=== PATIENT | female | born 1935 | race Caucasian/White ===

== ENCOUNTER 2017-11-10 20:04 | Emergency (ER) | payer MEDICARE, OTHER ==
[2014-09-29 11:06] VITALS: BMI 27.0
[~2017-11-10 20:04] MED LIST changes: +CITA-139 PO; -CITA-145 PO
--- NOTE | 2017-11-10 20:31 | ER Report ---
History and Physical Time Seen By MD: 20:30 Hx. of Stated Complaint: seizure, aloc, 1mg ativan given my bedics, found on scene snoring, states it looks like she seized 3 times, gluc 195 HPI/ROS CHIEF COMPLAINT: Seizure HISTORY OF PRESENT ILLNESS: 81-year-old female with no past history of neurological disease presents after having 4 distinct tonic-clonic seizure events over the last 2 hours. Each event lasted about 1 minute, followed by confusion. The 4th event occurred in the ambulance, patient was given 2 mg of Ativan just after seizure resolution. Patient's states she hit the left side of her head during the 3rd seizure. Her states that she has had decreased sleep and oral intake over the last few days. He states patient did not have a fever or other symptoms today. Patient's reports that the patient, under direction of her internet sales representative, injects preparation of food to try to neutralize her allergies, she also injects a very dilute hydrocodone solution in her thigh in order to be able to take oral hydrocodone. Discussed code status with patient's and patient is full code. REVIEW OF SYSTEMS: Constitutional: No fever, no chills. Eyes: No discharge. ENT: No sore throat. Cardiovascular: No chest pain, no palpitations. Respiratory: No cough, no shortness of breath. Gastrointestinal: No abdominal pain, no vomiting. Genitourinary: No hematuria. Musculoskeletal: No back pain. Skin: No rashes. Neurological: No headache. Allergies: Coded Allergies: Penicillins (Verified Allergy, Severe, 11/10/17) Tetanus Vaccines and Toxoid (Verified Allergy, Severe, 11/10/17) bupivacaine (Verified Allergy, Severe, 11/10/17) carisoprodol (Verified Allergy, Severe, 11/10/17) cefdinir (Verified Allergy, Severe, 11/10/17) cimetidine (Verified Allergy, Severe, 11/10/17) cyclobenzaprine (Verified Allergy, Severe, 11/10/17) erythromycin base (Verified Allergy, Severe, 11/10/17) methadone (Verified Allergy, Severe, 11/10/17) metronidazole (Verified Allergy, Severe, 11/10/17) minocycline (Verified Allergy, Severe, 11/10/17) morphine (Verified Allergy, Severe, 11/10/17) oxycodone (Verified Allergy, Severe, 11/10/17) phenol (Verified Allergy, Severe, 11/10/17) phenylephrine (Verified Allergy, Severe, 11/10/17) prochlorperazine (Verified Allergy, Severe, 11/10/17) sucralfate (Verified Allergy, Severe, 11/10/17) tramadol (Verified Allergy, Severe, 11/10/17) trovafloxacin (Verified Allergy, Severe, 11/10/17) Shellfish (Verified Allergy, Intermediate, 11/10/17) mold extracts (Verified Allergy, Intermediate, 11/10/17) polyethylene glycol 3350 (Verified Allergy, Intermediate, 11/10/17) adhesive (Verified Allergy, Mild, UNKNOWN, 11/10/17) cephalexin (Verified Allergy, Mild, TINNITUS, 11/10/17) ciprofloxacin (Verified Allergy, Mild, UNKNOWN, 11/10/17) clindamycin (Verified Allergy, Mild, UNKNOWN, 11/10/17) diphenhydramine (Verified Allergy, Mild, UNKNOWN, 11/10/17) gabapentin (Verified Allergy, Mild, UNKNOWN, 11/10/17) hydrocortisone (Verified Allergy, Mild, UNKNOWN, 11/10/17) lidocaine (Verified Allergy, Mild, UNKNOWN, 11/10/17) lorazepam (Verified Allergy, Mild, UNKNOWN, 11/10/17) prednisolone (Verified Allergy, Mild, UNKNOWN, 11/10/17) Fish Containing Products (Unverified Allergy, Unknown, 11/10/17) dexamethasone (Verified Allergy, Unknown, UNKNOWN, 11/10/17) green pepper (Unverified Allergy, Unknown, 11/10/17) hydromorphone (Unverified Allergy, Unknown, 11/10/17) influenza virus vaccine, specific (Verified Allergy, Unknown, UNKNOWN, 11/10) meperidine (Unverified Allergy, Unknown, 11/10/17) mirtazapine (Unverified Allergy, Unknown, 11/10/17) peas (Unverified Allergy, Unknown, 11/10/17) rivaroxaban (Unverified Allergy, Unknown, 11/10/17) rofecoxib (Unverified Allergy, Unknown, 11/10/17) sintia (Unverified Allergy, Unknown, 11/10/17) Uncoded Allergies: ALFALFA SPROUTS (Allergy, Intermediate, 05/14/10) ANIMALS (Allergy, Intermediate, 05/14/10) BUFFALO (Allergy, Intermediate, 05/14/10) CILANTRO (Allergy, Intermediate, 05/14/10) COLORING AND DYES (Allergy, Intermediate, ANAPHYLAXIS, 03/13/15) DUST (Allergy, Intermediate, 05/14/10) HANKINS (Allergy, Intermediate, 05/14/10) GAME MEAT (Allergy, Intermediate, 05/14/10) LISSA TEA (Allergy, Intermediate, 05/14/10) HARP (Allergy, Intermediate, 05/14/10) LENTILS (Allergy, Intermediate, 05/14/10) MACADAMIA NUTS (Allergy, Intermediate, 05/14/10) MAPLE FLAVOR (Allergy, Intermediate, NOTHING DOCUMENTED, 01/16/12) MUSHROOMS (Allergy, Intermediate, 05/14/10) RABBIT MEAT (Allergy, Intermediate, 05/14/10) HORSE SERUM (Allergy, Mild, 05/14/10) fluvaccine (Allergy, Mild, UNKNOWN, 03/20/14) Home Meds Active Scripts Sulfamethoxazole/Trimet 800-160 Mg Tab (BACTRIM DS TABLET) 1 Each Tablet, 1 TAB PO Q12H for 7 Days, #14 TAB Prov:KERRI MULLER JR, MD 05/17/17 Sulfamethoxazole/Trimet 800-160 Mg Tab (BACTRIM DS TABLET) 1 Each Tablet, 1 TAB PO Q12H for 10 Days, #20 TAB Prov:KERRI MULLER JR, MD 05/09/17 Dicyclomine Hcl (BENTYL) 10 Mg Capsule, 20 MG PO QID for cramping, #40 CAPSULE 0 Refills Prov:RAISA CHANEY MD 11/13/16 Alprazolam 0.5 Mg Tab (ALPRAZOLAM 0.5 MG TAB) 0.5 Mg Tablet, 1 TAB PO TID Y for for anxiety, #90 TAB 3 Refills Prov:KERRI NDIAYE MD 01/14/15 Acetaminophen/Hydrocodone (HYDROCODON-ACETAMINOPHN 10-325) 1 Each Tab, 2 TAB PO QID, #240 TAB 0 Refills Prov:KERRI NDIAYE MD 01/13/15 Reported Medications Eszopiclone (LUNESTA) 3 Mg Tablet, 3 MG PO QHS 10/28/16 Thyroid,Pork (WESTHROID-P) 65 Mg Tablet, 1 TAB PO DAILY, TAB 48.75 MG 09/28/14 Epinephrine (EPINEPHRINE) 0.15 Mg/0.15 Ml Pen.injctr, 0.15 MG IM PRN Y for ALLERGY SYMPTOMS 09/28/14 Diphenoxylate Hcl/Atropine (DIPHENOXYLATE-ATROPINE TABLET) 1 Each Tablet, 1 TAB PO BID Y for DIARRHEA, TAB 09/28/14 Cholecalciferol (Vitamin D3) (VITAMIN D) 1,000 Unit Tablet, 1000 UNIT PO DAILY, TAB 09/28/14 Past Medical/Surgical History See nurse's note 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 B/P (MAP) 116/56 (76) 139/61 (87) O2 Flow Rate 2.0 11/10/17 11/10/17 11/10/17 11/10/17 21:04 21:19 21:30 21:34 Pulse 101 98 94 Resp 25 20 B/P (MAP) 143/69 (93) Pulse Ox 94 95 11/10/17 11/10/17 11/10/17 11/10/17 22:00 22:09 22:24 22:30 Pulse 94 87 Resp 23 43 B/P (MAP) 122/51 (74) 88/45 (59) Pulse Ox 94 94 11/10/17 11/10/17 11/10/17 11/10/17 22:39 22:54 22:56 23:00 Pulse 87 97 Resp 22 B/P (MAP) 104/44 (64) 105/53 (70) 104/57 (73) Pulse Ox 95 5/10/2511/10/17 11/10/17 11/10/17 23:04 23:08 23:09 23:12 Pulse 95 Resp 24 B/P (MAP) 90/59 (69) 96/62 (73) 115/62 (79) Pulse Ox 93 11/10/17 11/10/17 11/10/17 11/10/17 23:16 23:20 23:24 23:32 B/P (MAP) 104/62 (76) 103/53 (70) 96/47 (63) 99/49 (66) 11/10/17 11/10/17 11/10/17 11/10/17 23:36 23:40 23:44 23:52 Pulse 83 Resp 20 B/P (MAP) 98/48 (65) 94/49 (64) 91/44 (60) 118/53 (74) Pulse Ox 92 11/10/17 11/10/17 11/11/17 11/11/17 23:56 23:59 00:00 00:04 Pulse 81 Resp 17 B/P (MAP) 116/50 (72) 120/50 (73) 110/48 (68) Pulse Ox 94 11/11/17 11/11/17 11/11/17 11/11/17 00:08 00:12 00:14 00:16 Pulse 81 Resp 23 B/P (MAP) 108/48 (68) 104/51 (68) 102/44 (63) Pulse Ox 90 Physical Exam General Appearance: The patient is sedated, has no immediate need for airway protection and no signs of toxicity. Eyes: Pupils equal and round no pallor or injection. Slight ecchymosis and swelling about the left eye. No laceration, EOMI intact. ENT, Mouth: Mucous membranes are moist. Respiratory: There are no retractions, lungs are clear to auscultation. Cardiovascular: Regular rate and rhythm. Gastrointestinal: Abdomen is soft and non tender, no masses, bowel sounds normal. Neurological: Initially patient is somnolent, withdraws to painful stimuli, is unable to follow verbal commands. After approximately 30 minutes of his apartment she shouldn't became more alert was able to follow commands and move all 4 extremities, she was still disoriented to time and place. Skin: Warm and dry, no rashes. Musculoskeletal: Neck is supple non tender. Extremities are nontender, nonswollen and have full range of motion. DIFFERENTIAL DIAGNOSIS: After history and physical exam differential diagnosis was considered for a seizure including but not limited to electrolyte abnormality, alcohol withdrawal, medication noncompliance, head injury, intracranial hemorrhage, meningitis. Medical Decision Making Data Points Result Diagram: 11/10/17200411/10/172004 Laboratory Hematology Test 11/10/17 20:05 11/10/17 21:13 11/10/17 21:30 11/10/17 23:09 Red Blood Count 5.93 M/uL (4.17-5.56) Mean Corpuscular Volume 81.4 fL (80.0-96.0) Mean Corpuscular Hemoglobin 25.9 pg (26.0-33.0) Mean Corpuscular Hemoglobin Concent 31.9 g/dL (32.0-36.0) Red Cell Distribution Width 18.3 % (11.5-14.5) Mean Platelet Volume 9.7 fL (7.2-11.1) Neutrophils (%) (Auto) 71.6 % (39.4-72.5) Lymphocytes (%) (Auto) 19.0 % (17.6-49.6) Monocytes (%) (Auto) 8.9 % (4.1-12.4) Eosinophils (%) (Auto) 0.2 % (0.4-6.7) Basophils (%) (Auto) 0.3 % (0.3-1.4) Nucleated RBC Relative Count (auto) 0.1 /100WBC Neutrophils # (Auto) 13.3 K/uL (2.0-7.4) Lymphocytes # (Auto) 3.5 K/uL (1.3-3.6) Monocytes # (Auto) 1.6 K/uL (0.3-1.0) Eosinophils # (Auto) 0.0 K/uL (0.0-0.5) Basophils # (Auto) 0.1 K/uL (0.0-0.1) Nucleated RBC Absolute Count (auto) 0.02 K/uL Prothrombin Time 13.5 seconds (12.0-14.4) Prothromb Time International Ratio 1.03 Activated Partial Thromboplast Time 23 seconds (23-35) Sodium Level 134 mmol/L (137-145) Potassium Level 3.7 mmol/L (3.5-5.0) Chloride Level 95 mmol/L (98-107) Carbon Dioxide Level 6 mmol/L (22-31) Blood Urea Nitrogen 22 mg/dl (7-18) Creatinine 1.10 mg/dl (0.52-1.04) Glomerular Filtration Rate Calc 47.9 Random Glucose 269 mg/dl (75-110) Calcium Level 9.6 mg/dl (8.4-10.2) Magnesium Level 2.8 mg/dl (1.7-2.2) Total Bilirubin 0.6 mg/dl (0.2-1.3) Aspartate Amino Transf (AST/SGOT) 51 U/L (0-35) Alanine Aminotransferase (ALT/SGPT) 34 U/L (0-56) Alkaline Phosphatase 110 U/L (0-126) Total Protein 8.3 gm/dl (6.3-8.2) Albumin 4.9 g/dl (3.5-5.0) Blood Gas Puncture Site Left radial Blood Gas Patient Temperature 97.6 DEGREES Arterial Blood pH 7.29 (7.35-7.45) Arterial Blood Partial Pressure CO2 27 mmHg (32-37) Arterial Blood Partial Pressure O2 71 mmHg (60-80) Arterial Blood HCO3 13 mmol/L (20-26) Arterial Blood Oxygen Saturation 93 % (92-100) Arterial Blood Base Excess -14.0 mmol/L Zion Test Acceptable Oxygen Liters/Minute Room air Lactate 11.0 mmol/L (0.7-2.1) Urine Color Yellow Urine Clarity Cloudy Urine pH 5.0 pH (4.8-9.5) Urine Specific Jacob 1.019 Urine Protein 100 mg/dL (NEGATIVE) Urine Glucose (UA) 150 mg/dL (NEGATIVE) Urine Ketones Negative mg/dL (NEGATIVE) Urine Blood Small (NEGATIVE) Urine Nitrite Negative (NEGATIVE) Urine Bilirubin Negative (NEGATIVE) Urine Urobilinogen Negative mg/dL (0.2-1.9) Urine Leukocyte Esterase Negative (NEGATIVE) Urine RBC 2 /HPF (0-2/HPF) Urine WBC 5 /HPF (0-5/HPF) Urine Squamous Epithelial Cells None /LPF (NONE-FEW) Urine Amorphous Crystals Many /HPF Urine Bacteria Negative /HPF (NONE-FEW) Urine Hyaline Casts Many /LPF (NONE-FEW) Urine Granular Casts Many /LPF (NONE) Urine Mucus Few /HPF (NONE-FEW) Urine Opiates Screen Positive Urine Barbiturates Screen Negative Ur Tricyclic Antidepressants Screen Negative Urine Phencyclidine Screen Negative Urine Amphetamines Screen Negative Urine Benzodiazepines Screen Negative Urine Cocaine Screen Negative Urine Cannabinoids Screen Negative CSF Appearance Clear (CLEAR) CSF Color Colorless (COLORLESS) CSF WBC 1 /mm3 (0-5) CSF RBC 20 /mm3 CSF Glucose 99 mg/dl CSF Total Protein 48 mg/dl (15-50) Chemistry Test 11/10/17 20:05 11/10/17 21:13 11/10/17 21:30 11/10/17 23:09 White Blood Count 18.6 k/uL (4.5-11.0) Red Blood Count 5.93 M/uL (4.17-5.56) Hemoglobin 15.4 g/dL (12.0-16.0) Hematocrit 48.3 % (34.0-47.0) Mean Corpuscular Volume 81.4 fL (80.0-96.0) Mean Corpuscular Hemoglobin 25.9 pg (26.0-33.0) Mean Corpuscular Hemoglobin Concent 31.9 g/dL (32.0-36.0) Red Cell Distribution Width 18.3 % (11.5-14.5) Platelet Count 317 K/uL (150-450) Mean Platelet Volume 9.7 fL (7.2-11.1) Neutrophils (%) (Auto) 71.6 % (39.4-72.5) Lymphocytes (%) (Auto) 19.0 % (17.6-49.6) Monocytes (%) (Auto) 8.9 % (4.1-12.4) Eosinophils (%) (Auto) 0.2 % (0.4-6.7) Basophils (%) (Auto) 0.3 % (0.3-1.4) Nucleated RBC Relative Count (auto) 0.1 /100WBC Neutrophils # (Auto) 13.3 K/uL (2.0-7.4) Lymphocytes # (Auto) 3.5 K/uL (1.3-3.6) Monocytes # (Auto) 1.6 K/uL (0.3-1.0) Eosinophils # (Auto) 0.0 K/uL (0.0-0.5) Basophils # (Auto) 0.1 K/uL (0.0-0.1) Nucleated RBC Absolute Count (auto) 0.02 K/uL Prothrombin Time 13.5 seconds (12.0-14.4) Prothromb Time International Ratio 1.03 Activated Partial Thromboplast Time 23 seconds (23-35) Glomerular Filtration Rate Calc 47.9 Calcium Level 9.6 mg/dl (8.4-10.2) Magnesium Level 2.8 mg/dl (1.7-2.2) Total Bilirubin 0.6 mg/dl (0.2-1.3) Aspartate Amino Transf (AST/SGOT) 51 U/L (0-35) Alanine Aminotransferase (ALT/SGPT) 34 U/L (0-56) Alkaline Phosphatase 110 U/L (0-126) Total Protein 8.3 gm/dl (6.3-8.2) Albumin 4.9 g/dl (3.5-5.0) Blood Gas Puncture Site Left radial Blood Gas Patient Temperature 97.6 DEGREES Arterial Blood pH 7.29 (7.35-7.45) Arterial Blood Partial Pressure CO2 27 mmHg (32-37) Arterial Blood Partial Pressure O2 71 mmHg (60-80) Arterial Blood HCO3 13 mmol/L (20-26) Arterial Blood Oxygen Saturation 93 % (92-100) Arterial Blood Base Excess -14.0 mmol/L Zion Test Acceptable Oxygen Liters/Minute Room air Lactate 11.0 mmol/L (0.7-2.1) Urine Color Yellow Urine Clarity Cloudy Urine pH 5.0 pH (4.8-9.5) Urine Specific Jacob 1.019 Urine Protein 100 mg/dL (NEGATIVE) Urine Glucose (UA) 150 mg/dL (NEGATIVE) Urine Ketones Negative mg/dL (NEGATIVE) Urine Blood Small (NEGATIVE) Urine Nitrite Negative (NEGATIVE) Urine Bilirubin Negative (NEGATIVE) Urine Urobilinogen Negative mg/dL (0.2-1.9) Urine Leukocyte Esterase Negative (NEGATIVE) Urine RBC 2 /HPF (0-2/HPF) Urine WBC 5 /HPF (0-5/HPF) Urine Squamous Epithelial Cells None /LPF (NONE-FEW) Urine Amorphous Crystals Many /HPF Urine Bacteria Negative /HPF (NONE-FEW) Urine Hyaline Casts Many /LPF (NONE-FEW) Urine Granular Casts Many /LPF (NONE) Urine Mucus Few /HPF (NONE-FEW) Urine Opiates Screen Positive Urine Barbiturates Screen Negative Ur Tricyclic Antidepressants Screen Negative Urine Phencyclidine Screen Negative Urine Amphetamines Screen Negative Urine Benzodiazepines Screen Negative Urine Cocaine Screen Negative Urine Cannabinoids Screen Negative CSF Appearance Clear (CLEAR) CSF Color Colorless (COLORLESS) CSF WBC 1 /mm3 (0-5) CSF RBC 20 /mm3 CSF Glucose 99 mg/dl CSF Total Protein 48 mg/dl (15-50) Coagulation Test 11/10/17 20:05 Prothrombin Time 13.5 seconds Prothromb Time International Ratio 1.03 Activated Partial Thromboplast Time 23 seconds Toxicology Test 11/10/17 21:30 Urine Opiates Screen Positive Urine Barbiturates Screen Negative Ur Tricyclic Antidepressants Screen Negative Urine Phencyclidine Screen Negative Urine Amphetamines Screen Negative Urine Benzodiazepines Screen Negative Urine Cocaine Screen Negative Urine Cannabinoids Screen Negative Urinalysis Test 11/10/17 21:30 Urine Color Yellow Urine Clarity Cloudy Urine pH 5.0 pH (4.8-9.5) Urine Specific Jacob 1.019 Urine Protein 100 mg/dL (NEGATIVE) Urine Glucose (UA) 150 mg/dL (NEGATIVE) Urine Ketones Negative mg/dL (NEGATIVE) Urine Blood Small (NEGATIVE) Urine Nitrite Negative (NEGATIVE) Urine Bilirubin Negative (NEGATIVE) Urine Urobilinogen Negative mg/dL (0.2-1.9) Urine Leukocyte Esterase Negative (NEGATIVE) Urine RBC 2 /HPF (0-2/HPF) Urine WBC 5 /HPF (0-5/HPF) Urine Squamous Epithelial Cells None /LPF (NONE-FEW) Urine Amorphous Crystals Many /HPF Urine Bacteria Negative /HPF (NONE-FEW) Urine Hyaline Casts Many /LPF (NONE-FEW) Urine Granular Casts Many /LPF (NONE) Urine Mucus Few /HPF (NONE-FEW) Microbiology Microbiology Date/Time Source Procedure Growth Status 11/10/17 23:09 Cerebrospinal Fluid Gram Stain - Final Resulted 11/10/17 23:09 Cerebrospinal Fluid CSF Culture Pending Resulted EKG/Imaging EKG Interpretation 12 lead EKG: Rhythm: [normal sinus rhythm] [place]: normal QRS: Right bundle branch block ST segments: normal Rate 98 Monitor Interpretation: Normal Sinus Rhythm Imaging Results: CT scan of the head was obtained. The results of the study are no acute intracranial process, moderate chronic small vessel disease is seen. The study was read by the radiologist. I viewed the images myself on the PACS system. Results: CT scan of the c spine was obtained. The results of the study are no acute fracture or malalignment. The study was read by the radiologist. I viewed the images myself on the PACS system. ED Course/Re-evaluation ED Course Patient's 4th seizure was witnessed by EMS and appears consistent with new onset seizure activity. On arrival, she was sedated secondary to Ativan 2 mg IV given by EMS. She was maintaining her airway and had normal vital signs. CT head and neck were obtained without contrast and showed no acute injury, intracranial hemorrhage. Labs note normal sodium, bicarbonate severely low, active elevated at 11, white blood cell count elevated 18k. Labs otherwise unremarkable. Patient became more alert soon after returning from CT, she was able to respond to questions and follow commands, but was confused regarding time and place. Neurological exam at this time is nonfocal, generalized weakness is noted the patient is able to lift all 4 extremities in the air with a small amount of drift. international tax manager 2 through 12 intact. She was given IV fluid. Dr. Esteban, neurology at [facility] was consulted and he recommended LP with prophylactic meningitis treatment, Keppra, then transferred to emergency department at [facility], no further imaging requested. Keppra 1 g loaded. Patient has multiple allergies to medications including lidocaine, Marcaine, steroids and several antibiotics. LP was obtained under conscious sedation due to her allergy to local anesthetic. Decadron was not given due to her allergy to steroids. CSF was sent for analysis, Gram stain, culture, HSV PCR. Patient given vancomycin and acyclovir. However no other antibiotics were given prior to transfer for due to allergies. Patient was transferred to [facility] emergency department was accepted by Dr. Galicia. The patient is in no acute distress, patient transferred by ground ambulance with instructions to give Ativan if she has another seizure. EMS only carries Ativan for seizure treatment, patient does report an allergy to Ativan however she received a prior to her arrival and appears to have no ill effects. CSF analysis shows colorless fluid, 1 WBC, 20 RBCs, normal glucose and protein, Gram stain negative. No signs of infectious process were found. Elevated lactate and leukocytosis appears to be secondary to seizure activity. Etiology of new onset seizure remains unclear and her mental status did not return to baseline prior to transfer. Procedure Procedure: Lumbar puncture. Indication: Seizure After verbal informed consent from patient's explaining the risks including infection, bleeding, and neurologic damage, a lumbar puncture was performed after the patient was prepped and draped in the usual fashion. Patient was given fentanyl and propofol for conscious sedation. Using 22-gauge needle, inserted at L4-L5. Approximately 4 cc of slightly bloody fluid was obtained. Opening pressure was not obtained. There were no complications. The procedure was performed by myself. Procedure: Procedural sedation. A pre-sedation evaluation was completed on the patient at 2030. Patient is an appropriate candidate for procedural sedation. The risks of the sedation were discussed with the agents . A time out was completed. The patient was reevaluated immediately prior to initiation of sedation. The patient was sedated with fentanyl and propofol. The patient was monitored with continuous pulse oximetry and training technician. There were no complications and no significant hypoxemia. I remained at the bedside for the sedation. The total time I spent in the procedural sedation was 20 minutes. Post sedation evaluation: Patient was alert and cooperative, hemodynamically stable with appropriate respiratory status, temperature and pain control without ongoing nausea and vomiting. Decision to Disposition Date: November 10, 2017 Decision to Disposition Time: 23:33 Depart Departure Latest Vital Signs Vital Signs Date Time Temp Pulse Resp B/P (MAP) Pulse Ox O2 Delivery O2 Flow Rate FiO2 11/11/17 00:16 102/44 (63) 11/11/17 00:14 81 23 90 11/10/17 20:27 2.0 11/10/17 20:07 97.6 Room Air Impression: Primary Impression: Seizure Additional Impressions: Contusion Status epilepticus Condition: Improved Disposition: XFER TO [facility]UTE [facility]ARE [facility] Referrals: JOSE G ABREU MD (PCP) Problem Qualifiers Additional Impressions: Contusion Encounter type: initial encounter Contusion area: head Contusion of head detail: eyelid Laterality: left Qualified Codes: S00.12XA - Contusion of left eyelid and periocular area, initial encounter JHONNY GOMES MD November 10, 2017 20:31
[2017-11-10 20:42] LABS: PLATELET COUNT, AUTOMATED 317 K/uL (150-450)
[2017-11-10] MEDS ORDERED: LR(*) 1000 ML BAG 1,000 ML IV ONE (20:50)
--- NOTE | 2017-11-10 21:20 | RADIOLOGY IMAGING REPORT ---
FACILITY: [facility] PATIENT NAME: Lizzette Alba : 1935 MR: [id number] V: [id number] EXAM DATE: ORDERING PHYSICIAN: JHONNY GOMES TECHNOLOGIST: Location: [facility] Patient: Lizzette Alba : 1935 Visit/Account:[id number] Date of Sevice: 11/10/2017 EXAMINATION: Head CT without intravenous contrast History:Seizure TECHNIQUE: Contiguous axial images were obtained from the skull base to the vertex without intraven ous contrast. One of the following dose optimization techniques was utilized in the performance of th is exam: Automated exposure control; adjustment of the mA and/or kV according to the patient's size; or use of an iterative reconstruction technique. Specific details can be referenced in the facility 's radiology CT exam operational policy. COMPARISON STUDIES: 04/22/2016 FINDINGS: Visualized mastoid air cells / paranasal sinuses: negative Skull base / calvarium: negative White matter: Moderate chronic small vessel disease Dural venous sinuses / arterial structures: negative Ventricles / sulci / fissures: Enlarged but within normal limits for age. Masses / hemorrhage / midline shift: negative Extra-axial spaces: negative IMPRESSION: . No evidence of fracture or acute intracranial pathology. 2. Moderate chronic small vessel disease. EXAMINATION: Cervical spine CT History: Neck injury COMPARISON STUDIES: 11/20/2013 TECHNIQUE: Axial images were obtained through the cervical spine without IV contrast administration. Coronal and sagittal reformatted images were obtained from the axial source data. One of the followi ng dose optimization techniques was utilized in the performance of this exam: Automated exposure cont rol; adjustment of the mA and/or kV according to the patient's size; or use of an iterative reconstr uction technique. Specific details can be referenced in the facility's radiology CT exam operational policy. FINDINGS: No evidence of fracture. Postoperative changes in the mid to lower cervical spine with multilevel spo ndylosis similar to the previous study. The hardware appears intact. Craniocervical junction intact. Paraspinal soft tissues negative. Lung apices are clear. IMPRESSION: Degenerative and postoperative changes similar to the previous study. No evidence of fracture. Report Dictated By: Yuri Capone MD at 11/10/2017 9:08 PM Report E-Signed By: Yuri Capone MD at 11/10/2017 9:16 PM WSN:[id number]
--- NOTE | 2017-11-10 21:21 | RADIOLOGY IMAGING REPORT ---
FACILITY: [facility] - [place] PATIENT NAME: Lizzette Alba : 1935 MR: [id number] V: [id number] EXAM DATE: ORDERING PHYSICIAN: JHONNY GOMES TECHNOLOGIST: Location: [facility] - [place] Patient: Lizzette Alba : 1935 Visit/Account:[id number] Date of Sevice: 11/10/2017 EXAMINATION: Head CT without intravenous contrast History:Seizure TECHNIQUE: Contiguous axial images were obtained from the skull base to the vertex without intraven ous contrast. One of the following dose optimization techniques was utilized in the performance of th is exam: Automated exposure control; adjustment of the mA and/or kV according to the patient's size; or use of an iterative reconstruction technique. Specific details can be referenced in the facility 's radiology CT exam operational policy. COMPARISON STUDIES: 04/22/2016 FINDINGS: Visualized mastoid air cells / paranasal sinuses: negative Skull base / calvarium: negative White matter: Moderate chronic small vessel disease Dural venous sinuses / arterial structures: negative Ventricles / sulci / fissures: Enlarged but within normal limits for age. Masses / hemorrhage / midline shift: negative Extra-axial spaces: negative IMPRESSION: . No evidence of fracture or acute intracranial pathology. 2. Moderate chronic small vessel disease. EXAMINATION: Cervical spine CT History: Neck injury COMPARISON STUDIES: 11/20/2013 TECHNIQUE: Axial images were obtained through the cervical spine without IV contrast administration. Coronal and sagittal reformatted images were obtained from the axial source data. One of the followi ng dose optimization techniques was utilized in the performance of this exam: Automated exposure cont rol; adjustment of the mA and/or kV according to the patient's size; or use of an iterative reconstr uction technique. Specific details can be referenced in the facility's radiology CT exam operational policy. FINDINGS: No evidence of fracture. Postoperative changes in the mid to lower cervical spine with multilevel spo ndylosis similar to the previous study. The hardware appears intact. Craniocervical junction intact. Paraspinal soft tissues negative. Lung apices are clear. IMPRESSION: Degenerative and postoperative changes similar to the previous study. No evidence of fracture. Report Dictated By: Yuri Capone MD at 11/10/2017 9:08 PM Report E-Signed By: Yuri Capone MD at 11/10/2017 9:16 PM [id number]
[2017-11-10] MEDS ORDERED: levETIRAcetam(*)500 MG/5 ML VI 1,000 MG in NS(*) 0.9% 100 ML BAG 100 ML IVPB ONE (21:50)
[2017-11-10 22:04] LABS: INR 1.03
[2017-11-10] MEDS ORDERED: fentaNYL CITR 100 MCG/2 ML AMP IVP ONE (22:20)
[2017-11-10] MEDS ORDERED: MIDAZOLAM 1 MG/1 ML 10 ML IVP ONE (22:20)
[2017-11-10] MEDS ORDERED: PROPOFOL EMUL(*) 10MG/ML 20 ML 20 ML ONE (22:49)
[2017-11-10] MEDS ORDERED: LR(*) 1000 ML BAG 1,000 ML ONE (22:52)
[2017-11-10] MEDS ORDERED: VANCOMYCIN 1 GM ADDVIAL 1 GM in NS(*) 0.9% 250 ML ADDVAN BAG 250 ML IVPB ONE (23:25)
[2017-11-11] MEDS ORDERED: PROPOFOL EMUL 10MG/ML 20 ML VL IV ONE (00:10)
[2017-11-11 00:16] VITALS: BP 102/44
[2017-11-11] MEDS ORDERED: ACYCLOVIR IVPB SCH (01:00)
[2017-11-11] MEDS ORDERED: NS 0.9% IVPB SCH (01:00)
--- NOTE | 2017-11-11 01:07 | EKG ---
FACILITY: [facility] - [place] PATIENT NAME: JENNA BARFIELD : [id number] MR: [id number] V: [id number] EXAM DATE: ORDERING PHYSICIAN: JHONNY GOMES TECHNOLOGIST: JACQUELYN Test Reason : ALTERD MENTAL STATUS Blood Pressure : / mmHG Vent. Rate : 098 BPM Atrial Rate : 098 BPM P-R Int : 152 ms QRS Dur : 136 ms QT Int : 376 ms P-R-T Axes : 066 015 037 degrees QTc Int : 480 ms Sinus rhythm Possible biatrial enlargement Right bundle branch block Abnormal ECG Confirmed by TRINY RAMIREZ ([id number]) on 11/11/2017 2:01:39 PM Referred By: Confirmed By:TRINY RAMIREZ
== END 2017-11-11 00:30 | disposition short-term general hospital (02) ==
LOC: ER 20:14
DX: G40.901 Epilepsy, unspecified, not intractable, with status epilepticus (principal); S00.12XA Contusion of left eyelid and periocular area, initial encounter; I45.10 Unspecified right bundle-branch block; R94.31 Abnormal electrocardiogram [ECG] [EKG]
CPT/HCPCS: 36600; 62270; 70450; 72125; 80305; 81001; 82803; 82945; 83605; 83735; 84157; 85025; 85610; 85730; 87070; 87205; 87529; 89050; 93005; 96361; 96365; 96367; 99153; 99284; J1953; J2704; J3010; J3370; J7050; J7120; 82040; 82247; 82310; 82374; 82435; 82565; 82947; 84075; 84132; 84155; 84295; 84450; 84460; 84520; 99152

== ENCOUNTER → 2017-11-10 | Outpatient (CLI) | payer MEDICARE, OTHER ==
[2014-09-29 11:06] VITALS: BMI 27.0
[~2017-11-10] MED LIST: ALP5 PO; ALPR-448 PO; ALPR-460 PO; AMA100 PO; ARM250PT PO; ASPI-870 PO; AZIT-17 PO; CA C1TAB85 PO; CELE50CA2 PO; CHOL10005 PO; CHOL100052 PO; CITA-145 PO; CODE118S5 PO; CYA1000I IM; CYAN1000 IJ; DIA5 PO; DICL100G39 TOP; DICY-42 PO; DIPH-1 PO; DIPH-543 PO; EPIN0.1516 IM; EPIN0.153 IM; ESTR625 PO; ESZ3PT PO; FLU100 PO; FLUT16SP19 NS; GLUTATHIONE; HYDR-2952 PO; HYDR-3102 PO; HYDR-393 PO; HYDR2TAB4 PO; LOM PO; LOR1 PO; LOR10/325 PO; MECL25TA9 PO; MEPE50TA29 PO; METH-318 PO; METH-321 PO; METO25TA23 PO; MIRT7.5T2 PO; PRED20TA6 PO; PROGESTERONE CREAM; PROM25S RC; RIV10 PO; RIVA15TA PO; RIVA20TA PO; SULF-198 PO; TERB250T63 PO; THYR15TA6 PO; THYR65TA; THYR65TA PO; VIT B 12; ZOLP-358 PO; ZOLP12.545 PO; [UNRECOGNIZED DRUG - CODE] PO; [UNRECOGNIZED DRUG - CODE] PO; [UNRECOGNIZED DRUG - OTHER]; [UNRECOGNIZED DRUG - OTHER] PO; [UNRECOGNIZED DRUG - OTHER] TOP
== END ==
LOC: AMB 19:52
PROVIDERS: ATTEND Nurse Practitioner
DX: R56.9 Unspecified convulsions (principal); Z98.1 Arthrodesis status
CPT/HCPCS: A0425; A0427

== ENCOUNTER → 2017-11-11 | Outpatient (CLI) | payer MEDICARE, OTHER ==
[2014-09-29 11:06] VITALS: BMI 27.0
[~2017-11-11] MED LIST changes: -CITA-139 PO; +CITA-145 PO
== END ==
LOC: AMB 00:07
PROVIDERS: ATTEND Nurse Practitioner
DX: R56.9 Unspecified convulsions (principal)
CPT/HCPCS: A0425; A0433

== ENCOUNTER 2018-02-09 14:30 | Outpatient (RCR) | payer MEDICARE, OTHER ==
[2014-09-29 11:06] VITALS: BMI 27.0
--- NOTE | 2018-02-08 11:14 | PT INITIAL EVALUATION ---
MEDICAL DIAGNOSIS: Z74.09, R42, M79.1, M47.812 TREATMENT DIAGNOSIS: same DATE OF ONSET: 01/21/18 SUBJECTIVE: Lizzette presents to physical therapy with complaints of dizziness , cervical pain, thoracic pain, and impaired mobility, balance, and endurance. She reports that she would like to address the dizziness since she states that it started approximately 3-4 weeks ago. Furthermore, she reports that she feels like the dizziness is her main concern right now and then would like to transition to the cervical and thoracic pain followed by addressing her impaired endurance, balance, and function. 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 She reports that she has had a few procedures since those surgeries but she states that they have only been minor procedures. She rates her cervical pain to be 5-7/10 and rates it to be worse with turning and better with pain medications. She rates her thoracic pain to be 4.5/10 and becomes worse with raising her R arm above her shoulder and better with not moving her body. She reports that the cervical and thoracic pain is a constant sharp pain. She reports that her dizziness becomes worse with sitting up, turning, and looking up. She reports that it is hard to determine if spinning is occurring. REHAB PROBLEM LIST: Increased Pain Decreased ROM Decreased Strength Decreased Endurance Decreased Balance Decreased Function Decreased ADL's Decreased Mobility Decreased Gait PREVIOUS MEDICAL HISTORY: See EMR OCCUPATION: Retired OBJECTIVE: Posture: She demonstrates forward head, increased thoracic kyphosis, decreased lumbar lordosis. She does not demonstrate wry neck or any lateral shifts in her spine. ROM: Will address cervical and thoracic in the future visits Strength: Will address strength in future visits Sensation: Will test in future visits Special Tests: (-) OCULOMOTOR/VESTIBULAR TESTING: Spontaneous Nystagmus: Absent VOR Head Thrust (horizontal canal function): R: Negative, L: Negative Gaze- Evoked Nystagmus with fixation present:Absent VOR Head Thrust (posterior canal function): R: Positive, L: Positive Posterior Horizontal Head-Shaking Nystagmus ( - ) Gaze-Evoked Nystagmus with fixation suppressed: absent Smooth Pursuit Saccades VOR Cancellation: Normal POSITIONING TEST: Left Hallpike + Right Hallpike + Roll Test R +, L + Mobility: Modified Independent Gait: She demonstrated the following gait mechanics: decreased velocity, increased base of support, decreased pelvic rotation, decreased B step lengths , minimal forward lean, and decreased B feet clearance. She did not demonstrate any LOBs throughout the session. Balance: Will test in future visits ASSESSMENT: Lizzette will benefit from skilled physical therapy addressing the listed impairments to improve function and QOL. We addressed the dizziness today and will address the cervical and thoracic spine along with the impaired balance, function, and strength in future visits. Short Term Goals 3 weeks: Pt will be able to move her head into cervical extension, cervical rotation to the R and L, and turn head in bed with 0/10 dizziness to improve function and QOL. 3 weeks: Pt will be able to perform supine to sit to standing transfers and ambulate with 0/10 dizziness to improve function and QOL. 6 weeks: Pt will demonstrate potential directional preference and centralized thoracic and cervical neck pain to improve function and OQL. 8 weeks: (If she demonstrates directional preference and centralized neck pain ) will demonstrate abolished cervical and thoracic neck pain and return to prior level of function to improve function and QOL. Patient's Goals improve dizziness, cervical and thoracic pain PLAN: Patient to be seen for Manual Therapy/STM/MET Strengthening/condition Ice/Heat Range of Motion Spinal Stabilization Work Hardening/Cond Stretching Iontophoresis Neuromuscular Re-ed Closed Chain Program Electrical Stim Posture/Body mechanics Gait Trg/Balance Trg Home Exercise Program Therapeutic Activities 2x/Week for 2 Months If you have any questions, comments, or concerns about this report or plan, please contact me at . Thank you, Linus Rader, PT, DPT MTDD
== END 2018-02-09 18:00 | disposition home or self-care (01) ==
LOC: PT 14:30
PROVIDERS: ATTEND Psychiatry & Neurology Neurology
DX: R42 Dizziness and giddiness (principal); M47.812 Spondylosis without myelopathy or radiculopathy, cervical region; M79.1 Myalgia; Z74.09 Other reduced mobility
CPT/HCPCS: 97163

== ENCOUNTER 2018-10-02 16:10 | Emergency (ER) | payer MEDICARE, OTHER ==
[2014-09-29 11:06] VITALS: Wt 70.3 kg
[~2018-10-02 16:10] MED LIST changes: +MEPE100T17 PO; -[UNRECOGNIZED DRUG - CODE] PO
--- NOTE | 2018-10-02 16:25 | ER Report ---
History and Physical Time Seen By MD: 16:23 (WILMA YOUSIF MD) HPI/ROS CHIEF COMPLAINT: Chest pain HISTORY OF PRESENT ILLNESS: This is an 82-year-old female. She has had chest pain off and on for a couple of days now. Seeming to be worse today. Short of breath. Found to be hypoxic on triage and put on oxygen, does not normally wear oxygen. Has history of PE in the past. Pain central sternal area, non-radiating. Has chronic pain in back and neck, requesting her scheduled dose of Hydrocodone. Has no nausea. No sweats. Denies abdominal pain. Normal bowels and normal bladder function without dysuria or frequency. Denies fevers or chills. Mild chronic cough, not worse than usual. REVIEW OF SYSTEMS: above. (WILMA YOUSIF MD) Allergies: Coded Allergies: Penicillins (Verified Allergy, Severe, 10/04/18) Tetanus Vaccines and Toxoid (Verified Allergy, Severe, 10/04/18) bupivacaine (Verified Allergy, Severe, 10/04/18) carisoprodol (Verified Allergy, Severe, 10/04/18) cefdinir (Verified Allergy, Severe, 10/04/18) cimetidine (Verified Allergy, Severe, 10/04/18) cyclobenzaprine (Verified Allergy, Severe, 10/04/18) methadone (Verified Allergy, Severe, 10/04/18) metronidazole (Verified Allergy, Severe, 10/04/18) minocycline (Verified Allergy, Severe, 10/04/18) morphine (Verified Allergy, Severe, 10/04/18) oxycodone (Verified Allergy, Severe, 10/04/18) phenol (Verified Allergy, Severe, 10/04/18) phenylephrine (Verified Allergy, Severe, 10/04/18) prochlorperazine (Verified Allergy, Severe, 10/04/18) sucralfate (Verified Allergy, Severe, 10/04/18) tramadol (Verified Allergy, Severe, 10/04/18) trovafloxacin (Verified Allergy, Severe, 10/04/18) Shellfish (Verified Allergy, Intermediate, 10/04/18) mold extracts (Verified Allergy, Intermediate, 10/04/18) polyethylene glycol 3350 (Verified Allergy, Intermediate, 10/04/18) adhesive (Verified Allergy, Mild, UNKNOWN, 10/04/18) cephalexin (Verified Allergy, Mild, TINNITUS, 10/04/18) ciprofloxacin (Verified Allergy, Mild, UNKNOWN, 10/04/18) clindamycin (Verified Allergy, Mild, UNKNOWN, 10/04/18) diphenhydramine (Verified Allergy, Mild, UNKNOWN, 10/04/18) hydrocortisone (Verified Allergy, Mild, UNKNOWN, 10/04/18) lidocaine (Verified Allergy, Mild, UNKNOWN, 10/04/18) lorazepam (Verified Allergy, Mild, UNKNOWN, 10/04/18) prednisolone (Verified Allergy, Mild, UNKNOWN, 10/04/18) Fish Containing Products (Unverified Allergy, Unknown, 10/04/18) dexamethasone (Verified Allergy, Unknown, UNKNOWN, 10/04/18) hydromorphone (Unverified Allergy, Unknown, 10/04/18) influenza virus vaccine, specific (Verified Allergy, Unknown, UNKNOWN, 10/04/18) meperidine (Unverified Allergy, Unknown, 10/04/18) mirtazapine (Unverified Allergy, Unknown, 10/04/18) peas (Unverified Allergy, Unknown, 10/04/18) rivaroxaban (Unverified Allergy, Unknown, 10/04/18) rofecoxib (Unverified Allergy, Unknown, 10/04/18) sintia (Unverified Allergy, Unknown, 10/04/18) Uncoded Allergies: ALFALFA SPROUTS (Allergy, Intermediate, 05/14/10) ANIMALS (Allergy, Intermediate, 05/14/10) BUFFALO (Allergy, Intermediate, 05/14/10) CILANTRO (Allergy, Intermediate, 05/14/10) COLORING AND DYES (Allergy, Intermediate, ANAPHYLAXIS, 03/13/15) DUST (Allergy, Intermediate, 05/14/10) HANKINS (Allergy, Intermediate, 05/14/10) GAME MEAT (Allergy, Intermediate, 05/14/10) LISSA TEA (Allergy, Intermediate, 05/14/10) HARP (Allergy, Intermediate, 05/14/10) LENTILS (Allergy, Intermediate, 05/14/10) MACADAMIA NUTS (Allergy, Intermediate, 05/14/10) MAPLE FLAVOR (Allergy, Intermediate, NOTHING DOCUMENTED, 01/16/12) MUSHROOMS (Allergy, Intermediate, 05/14/10) RABBIT MEAT (Allergy, Intermediate, 05/14/10) HORSE SERUM (Allergy, Mild, 05/14/10) fluvaccine (Allergy, Mild, UNKNOWN, 03/20/14) Home Meds Active Scripts Acetaminophen/Hydrocodone (HYDROCODON-ACETAMINOPHN 10-325) 1 Each Tab, 2 TAB PO QID, #240 TAB 0 Refills Prov:KERRI NDIAYE MD 01/13/15 Reported Medications Eszopiclone (LUNESTA) 3 Mg Tablet, 3 MG PO QHS 10/28/16 Thyroid,Pork (WESTHROID-P) 65 Mg Tablet, 1 TAB PO DAILY, TAB 48.75 MG 09/28/14 Epinephrine (EPINEPHRINE) 0.15 Mg/0.15 Ml Pen.injctr, 0.15 MG IM PRN PRN for ALLERGY SYMPTOMS 09/28/14 Cholecalciferol (Vitamin D3) (VITAMIN D) 1,000 Unit Tablet, 1000 UNIT PO DAILY, TAB 09/28/14 Discontinued Reported Medications Diphenoxylate Hcl/Atropine (DIPHENOXYLATE-ATROPINE TABLET) 1 Each Tablet, 1 TAB PO BID PRN for DIARRHEA, TAB 09/28/14 Discontinued Scripts Sulfamethoxazole/Trimet 800-160 Mg Tab (BACTRIM DS TABLET) 1 Each Tablet, 1 TAB PO Q12H for 7 Days, #14 TAB Prov:KERRI MULLER JR, MD 05/17/17 Sulfamethoxazole/Trimet 800-160 Mg Tab (BACTRIM DS TABLET) 1 Each Tablet, 1 TAB PO Q12H for 10 Days, #20 TAB Prov:KERRI MULLER JR, MD 05/09/17 Dicyclomine Hcl (BENTYL) 10 Mg Capsule, 20 MG PO QID for cramping, #40 CAPSULE 0 Refills Prov:RAISA CHANEY MD 11/13/16 Alprazolam 0.5 Mg Tab (ALPRAZOLAM 0.5 MG TAB) 0.5 Mg Tablet, 1 TAB PO TID PRN for for anxiety, #90 TAB 3 Refills Prov:KERRI NDIAYE MD 01/14/15 Reviewed Nurses Notes: Yes (WILMA YOUSIF MD) 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 (1665) 194/93 194/93 (126) Pulse Ox 78 92 O2 Delivery Room Air 10/02/18 10/02/18 10/02/18 10/02/18 16:29 16:40 16:55 17:00 Pulse 86 87 Resp 28 12 B/P (MAP) 208/205 (206) Pulse Ox 96 94 O2 Flow Rate 6.0 10/02/18 10/02/18 10/02/18 10/02/18 17:10 17:20 17:25 17:40 Pulse 82 80 81 Resp 18 17 16 B/P (MAP) 207/97 (133) 199/97 (131) Pulse Ox 94 94 91 10/02/18 10/02/18 10/02/18 10/02/18 17:55 18:00 18:00 18:20 Pulse 80 82 Resp 17 15 B/P (MAP) 192/90 (124) 192/90 (124) 199/88 (125) Pulse Ox 93 92 10/02/18 10/02/18 10/02/18 10/02/18 18:30 18:35 18:37 18:45 Pulse 83 Resp 14 B/P (MAP) 186/84 (118) 167/78 (107) 171/85 (113) Pulse Ox 92 10/02/18 10/02/18 10/02/18 10/02/18 19:00 19:27 19:30 19:45 Pulse 70 Resp 17 77 B/P (MAP) 189/91 (123) 205/96 (132) 170/77 (108) Pulse Ox 92 97 10/02/18 10/02/18 10/02/18 10/02/18 19:50 20:05 20:15 20:20 Pulse 72 72 Resp 14 21 B/P (MAP) 180/81 (114) 154/79 (104) Pulse Ox 93 83 10/02/18 10/02/18 10/02/18 20:30 20:45 20:50 Pulse 67 Resp 15 B/P (MAP) 154/75 (101) 156/72 (100) Pulse Ox 93 l Intake and Output 10/02/18 10/02/18 10/03/18 15:00 23:00 07:00 Intake Total 250 ml Balance 250 ml (RADHAVASU ) Physical Exam General Appearance: The patient is alert. No acute distress. Eyes: Pupils are equal, round. No pallor, injection or icterus. ENT: Mucous membranes are moist. Normal oral mucosa. Posterior oropharynx is normal. Neck: Supple and non tender. No lymphadenopathy. Respiratory: Lungs with rales in the bases, otherwise normal air movement. No wheezing or rhonchi. There are no retractions or accessory muscle use. Cardiovascular: Regular rate and rhythm. No murmurs, gallops or rubs. Normal capillary refill. 1+ edema in ankles bilaterally. Gastrointestinal: Abdomen is soft and non tender. Nondistended. Normal active bowel sounds. Neurological: Alert and oriented x3. No focal neurologic deficits Skin: Warm and dry. Musculoskeletal: No reproducible chest pain with palpation. Has chronic neck and back pain, painful now, but similar to usual. DIFFERENTIAL DIAGNOSIS: After history and physical exam, differential diagnosis was considered for patient with hypoxia and chest pain with some edema in the ankles, including but not limited to myocardial ischemia, pulmonary embolus, chest wall pain, heart failure, pleural inflammation and pulmonary infectious causes. ([facility] MD) Medical Decision Making Data Points Result Diagram: 10/02/18 1622 10/02/18 0000 Laboratory Hematology Test 10/02/18 00:00 10/02/18 16:22 10/02/18 16:33 Sodium Level 140 mmol/L (137-145) Potassium Level 3.8 mmol/L (3.5-5.0) Chloride Level 105 mmol/L (98-107) Carbon Dioxide Level 25 mmol/L (22-31) Blood Urea Nitrogen 11 mg/dl (7-18) Creatinine 1.10 mg/dl (0.52-1.04) Glomerular Filtration Rate Calc 47.8 Random Glucose 140 mg/dl (75-110) Calcium Level 8.9 mg/dl (8.4-10.2) Total Bilirubin 0.5 mg/dl (0.2-1.3) Aspartate Amino Transf (AST/SGOT) 41 U/L (0-35) Alanine Aminotransferase (ALT/SGPT) 18 U/L (0-56) Alkaline Phosphatase 115 U/L (0-126) Troponin I < 0.012 ng/ml Total Protein 8.0 g/dl (6.3-8.2) Albumin 4.5 g/dl (3.5-5.0) Red Blood Count 5.71 M/uL (4.17-5.56) Mean Corpuscular Volume 82.2 fL (80.0-96.0) Mean Corpuscular Hemoglobin 26.9 pg (26.0-33.0) Mean Corpuscular Hemoglobin Concent 32.7 g/dL (32.0-36.0) Red Cell Distribution Width 15.1 % (11.5-14.5) Mean Platelet Volume 9.7 fL (7.2-11.1) Neutrophils (%) (Auto) 49.4 % (39.4-72.5) Lymphocytes (%) (Auto) 32.0 % (17.6-49.6) Monocytes (%) (Auto) 13.7 % (4.1-12.4) Eosinophils (%) (Auto) 3.6 % (0.4-6.7) Basophils (%) (Auto) 1.3 % (0.3-1.4) Nucleated RBC Relative Count (auto) 0.1 /100WBC Neutrophils # (Auto) 3.4 K/uL (2.0-7.4) Lymphocytes # (Auto) 2.2 K/uL (1.3-3.6) Monocytes # (Auto) 0.9 K/uL (0.3-1.0) Eosinophils # (Auto) 0.2 K/uL (0.0-0.5) Basophils # (Auto) 0.1 K/uL (0.0-0.1) Nucleated RBC Absolute Count (auto) 0.00 K/uL Prothrombin Time 12.0 seconds (12.0-14.4) Prothromb Time International Ratio 0.89 Activated Partial Thromboplast Time 30 seconds (23-35) D-Dimer Quantitative (PE/DVT) 0.88 ug/ml (0-0.50) B-Type Natriuretic Peptide 13 pg/ml (0-100) Chemistry Test 10/02/18 00:00 10/02/18 16:22 10/02/18 16:33 Glomerular Filtration Rate Calc 47.8 Calcium Level 8.9 mg/dl (8.4-10.2) Total Bilirubin 0.5 mg/dl (0.2-1.3) Aspartate Amino Transf (AST/SGOT) 41 U/L (0-35) Alanine Aminotransferase (ALT/SGPT) 18 U/L (0-56) Alkaline Phosphatase 115 U/L (0-126) Troponin I < 0.012 ng/ml Total Protein 8.0 g/dl (6.3-8.2) Albumin 4.5 g/dl (3.5-5.0) White Blood Count 6.9 k/uL (4.5-11.0) Red Blood Count 5.71 M/uL (4.17-5.56) Hemoglobin 15.3 g/dL (12.0-16.0) Hematocrit 46.9 % (34.0-47.0) Mean Corpuscular Volume 82.2 fL (80.0-96.0) Mean Corpuscular Hemoglobin 26.9 pg (26.0-33.0) Mean Corpuscular Hemoglobin Concent 32.7 g/dL (32.0-36.0) Red Cell Distribution Width 15.1 % (11.5-14.5) Platelet Count 273 K/uL (150-450) Mean Platelet Volume 9.7 fL (7.2-11.1) Neutrophils (%) (Auto) 49.4 % (39.4-72.5) Lymphocytes (%) (Auto) 32.0 % (17.6-49.6) Monocytes (%) (Auto) 13.7 % (4.1-12.4) Eosinophils (%) (Auto) 3.6 % (0.4-6.7) Basophils (%) (Auto) 1.3 % (0.3-1.4) Nucleated RBC Relative Count (auto) 0.1 /100WBC Neutrophils # (Auto) 3.4 K/uL (2.0-7.4) Lymphocytes # (Auto) 2.2 K/uL (1.3-3.6) Monocytes # (Auto) 0.9 K/uL (0.3-1.0) Eosinophils # (Auto) 0.2 K/uL (0.0-0.5) Basophils # (Auto) 0.1 K/uL (0.0-0.1) Nucleated RBC Absolute Count (auto) 0.00 K/uL Prothrombin Time 12.0 seconds (12.0-14.4) Prothromb Time International Ratio 0.89 Activated Partial Thromboplast Time 30 seconds (23-35) D-Dimer Quantitative (PE/DVT) 0.88 ug/ml (0-0.50) B-Type Natriuretic Peptide 13 pg/ml (0-100) Coagulation Test 10/02/18 16:33 Prothrombin Time 12.0 seconds Prothromb Time International Ratio 0.89 Activated Partial Thromboplast Time 30 seconds D-Dimer Quantitative (PE/DVT) 0.88 ug/ml (VASU GARCIA DO) EKG/Imaging EKG Interpretation 12 lead EKG: Rhythm: [normal sinus rhythm] [[place]:] [normal] [QRS:] [normal] ST segments: [normal] [ ] (WILMA YOUSIF MD) Imaging Results: CT scan of the CTA pulmonary angiogram was obtained. The results of the study are EXAMINATION: CTA of the chest with IV contrast HISTORY: Chest pain. Hypoxia. TECHNIQUE: Pulmonary embolus protocol - Thin axial CT images of the chest were obtained with IV contrast during maximal pulmonary arterial opacification. Reconstruction of the source data includes multiplanar 2D coronal and sagittal reconstructed images, and 3D coronal and sagittal MIP images. Process Treater images have been stored on PACS. One of the following dose optimization techniques was utilized in the perform ance of this exam: Automated exposure control; adjustment of the mA and/or kV according to the patient's size; or use of an iterative reconstruction technique. Specific details can be referenced in the facility's radiology CT exam operational policy. Contrast: 75 mL of IV Isovue-370. COMPARISON: CTA chest 03/13/2015. Thoracic spine CT 04/22/2016. FINDINGS: Pulmonary arteries: The pulmonary arteries are well opacified, without suspicious filling defect. Heart, aorta, and great vessels: Normal caliber thoracic aorta, without aneurysm or dissection. Vascular calcifications including coronary artery calcifications. Normal heart size. No pericardial effusion. Lungs and pleura: There is some focal consolidation in the left lower lobe posteriorly which may represent pneumonia. Mild streaky density in the right lung base likely represents atelectasis. There is slight scarring or atelectasis in the lingula. The upper lungs are clear. The central airways are patent. No pleural effusion or pneumothorax. Mediastinum and russ: Negative. Visualized upper abdomen: Fatty infiltration of the liver. Chest wall: Negative. Bones: A compression fracture of T6 has mildly progressed since the prior thoracic spine CT of 2016. Mild superior endplate wedging of T4 has also progres sed. New mild superior endplate wedging of T9. There is stable chronic superior endplate wedging of T11. Multilevel degenerative changes along the spine. IMPRESSION: 1. No evidence of pulmonary embolism. 2. Consolidation in the left lung base may represent pneumonia. 2. Mild right basilar atelectasis. 4. Coronary artery calcifications. Normal heart size. 5. Thoracic compression fractures as described above. A number of these are new or progressed since 2016 but of indeterminate chronicity. The study was read by the radiologist. I viewed the images myself on the PACS system. (VASU GARCIA DO) ED Course/Re-evaluation Clinical Indication for ER IV: IV Access (WILMA YOUSIF MD) ED Course Care was assumed at shift change from Dr. Yousif with pending. Diagnostic CTA pulmonary angiogram. CTA was negative for pulmonary embolus him. There was a suspicious infiltrate. Patient has a normal white blood cell count, she has no productive cough to suggest pneumonia. Patient has chronic back pain. There are numerous compression fractures noted on the CT scan. Patient was medicated with Lortab by mouth for pain. Her saturations without supplemental O2 drop into the 79 range. I think she has occult pneumonia. I think that she should be admitted. I spoke with her at length and offered her admission but she declined. She would like to go home on supplemental O2. She has O2 at home. She is advised to follow-up with her primary care doctor tomorrow if unimproved. She's also advised that she can return to the ER for further evaluation. Decision to Disposition Date: Oct 02, 2018 Decision to Disposition Time: 20:38 (VASU GARCIA DO) Depart Departure Latest Vital Signs Vital Signs Date Time Temp Pulse Resp B/P (MAP) Pulse Ox O2 Delivery O2 Flow Rate FiO2 10/02/18 20:50 67 15 93 10/02/18 20:45 156/72 (100) 3/26/19 16:29 6.0 10/02/18 16:18 97.6 Room Air (VASU GARCIA DO) Impression: Primary Impression: Back pain Additional Impressions: Compression fracture of thoracic spine, non-traumatic Hypoxia Infiltrate noted on imaging study Condition: Improved Disposition: HOME OR SELF-CARE Referrals: JOSE G ABREU MD (PCP) Patient Instructions: Hypoxia (ED), Vertebral Compression Fracture (ED) Additional Instructions: Follow-up with your doctor if unimproved in one to 2 days Return to the ER for any worsening Problem Qualifiers Primary Impression: Back pain Back pain location: thoracic back pain Chronicity: chronic Back pain laterality: midline Qualified Codes: M54.6 - Pain in thoracic spine; G89.29 - Other chronic pain Additional Impressions: Compression fracture of thoracic spine, non-traumatic Encounter type: initial encounter Thoracic vertebra fracture level: T7 Qualified Codes: M48.54XA - Collapsed vertebra, not elsewhere classified, thoracic region, initial encounter for fracture WILMA YOUSIF MD Oct 02, 2018 16:25 VASU GARCIA DO Oct 02, 2018 20:40
[2018-10-02] MEDS ORDERED: ASPIRIN 81 MG CHEW PO ONE (16:35)
[2018-10-02] MEDS ORDERED: APAP/HYDROCODONE 325/5 TAB PO ONE ×3 (16:35→20:30)
[2018-10-02 16:56] LABS: PLATELET COUNT, AUTOMATED 273 K/uL (150-450)
[2018-10-02] MEDS ORDERED: ASPIRIN 325 MG TAB PO ONE (17:05)
[2018-10-02 17:15] LABS: INR 0.89
[2018-10-02] MEDS ORDERED: LABETALOL HCL 20 MG/4 ML SYR IVP ONE (18:10)
[2018-10-02] MEDS ORDERED: NS(*) 0.9% 1000 ML BAG 1,000 ML IV ONE (18:15)
[2018-10-02] MEDS ORDERED: LABETALOL HCL 25 MG/5 ML SYRINGE IVP ONE (18:25)
--- NOTE | 2018-10-02 18:59 | RADIOLOGY IMAGING REPORT ---
FACILITY: [facility] - [place], [place] PATIENT NAME: Lizzette Alba : 1935 MR: [id number] V: [id number] EXAM DATE: ORDERING PHYSICIAN: WILMA SILVA TECHNOLOGIST: Location: [facility] - [place] Patient: Lizzette Alba : 1935 Visit/Account:[id number] Date of Sevice: 10/02/2018 2 VIEWS CHEST INDICATION: Chest pain. COMPARISON: 03/29/2017 FINDINGS: Lungs are clear. There is partial eventration of the right hemidiaphragm without interval change. No effusion or pneumothorax is seen. Heart size and mediastinal contours are normal. Degenerative disc d isease with an S-shaped scoliotic curvature involves the spine. There are age indeterminant thoracic compression fractures. These are felt to involve the T11, T9, and T6 vertebral bodies. IMPRESSION: 1. No radiographic evidence of active disease. 2. Age indeterminant thoracic spine compression deformities. Correlate for symptoms. Report Dictated By: Rishabh Rasheed at 10/02/2018 6:54 PM Report E-Signed By: Rishabh Rasheed at 10/02/2018 6:56 PM WSN:[id number]
[2018-10-02] MEDS ORDERED: IOPAMIDOL 76% 150 ML INFUS BTL 150 ML ONE (19:06)
[2018-10-02] MEDS ORDERED: NS 0.9% 25 ML BAG 50 ML ONE (19:07)
--- NOTE | 2018-10-02 20:08 | RADIOLOGY IMAGING REPORT ---
[place] [facility] [place]IENT NAME: Lizzette Alba : 1935 MR: [id number] V: [id number] EXAM DATE: ORDERING PHYSICIAN: WILMA SILVA TECHNOLOGIST: Location: [facility] Patient: Lizzette Alba : 1935 Visit/Account:[id number] Date of Sevice: 10/02/2018 EXAMINATION: CTA of the chest with IV contrast HISTORY: Chest pain. Hypoxia. TECHNIQUE: Pulmonary embolus protocol - Thin axial CT images of the chest were obtained with IV con trast during maximal pulmonary arterial opacification. Reconstruction of the source data includes mul tiplanar 2D coronal and sagittal reconstructed images, and 3D coronal and sagittal MIP images. Repres entative images have been stored on PACS. One of the following dose optimization techniques was utilized in the performance of this exam: Autom ated exposure control; adjustment of the mA and/or kV according to the patient's size; or use of an i terative reconstruction technique. Specific details can be referenced in the facility's radiology C T exam operational policy. Contrast: 75 mL of IV Isovue-370. COMPARISON: CTA chest 03/13/2015. Thoracic spine CT 04/22/2016. FINDINGS: Pulmonary arteries: The pulmonary arteries are well opacified, without suspicious filling defect. Heart, aorta, and great vessels: Normal caliber thoracic aorta, without aneurysm or dissection. Vasc ular calcifications including coronary artery calcifications. Normal heart size. No pericardial effus ion. Lungs and pleura: There is some focal consolidation in the left lower lobe posteriorly which may rep resent pneumonia. Mild streaky density in the right lung base likely represents atelectasis. There is slight scarring or atelectasis in the lingula. The upper lungs are clear. The central airways are pa tent. No pleural effusion or pneumothorax. Mediastinum and russ: Negative. Visualized upper abdomen: Fatty infiltration of the liver. Chest wall: Negative. Bones: A compression fracture of T6 has mildly progressed since the prior thoracic spine CT of 2015. Mild superior endplate wedging of T4 has also progressed. New mild superior endplate wedging of T9. There is stable chronic superior endplate wedging of T11. Multilevel degenerative changes along the s pine. IMPRESSION: 1. No evidence of pulmonary embolism. 2. Consolidation in the left lung base may represent pneumonia. 2. Mild right basilar atelectasis. 4. Coronary artery calcifications. Normal heart size. 5. Thoracic compression fractures as described above. A number of these are new or progressed since 2016 but of indeterminate chronicity. Report Dictated By: Eris Neff MD at 10/02/2018 7:53 PM Report E-Signed By: Eris Neff MD at 10/02/2018 8:03 PM WSN:[id number]
[2018-10-02] MEDS ORDERED: LEVALBUTEROL 1.25 MG/3 ML NEB NEB ONE (20:35)
[2018-10-02 20:45] VITALS: BP 156/72
--- NOTE | 2018-10-02 23:19 | EKG ---
FACILITY: [facility] [place] PATIENT NAME: JENNA BARFIELD : [id number] MR: [id number] V: [id number] EXAM DATE: ORDERING PHYSICIAN: WILMA SILVA TECHNOLOGIST: SAMUEL Esposito Reason : CP Blood Pressure : / mmHG Vent. Rate : 096 BPM Atrial Rate : 096 BPM P-R Int : 154 ms QRS Dur : 126 ms QT Int : 372 ms P-R-T Axes : 057 -19 044 degrees QTc Int : 469 ms Normal sinus rhythm Right bundle branch block No significant change from previous Confirmed by SARAHI WHITE ([id number]) on 10/03/2018 7:33:15 AM Referred By: ER Confirmed By:SARAHI WHITE
== END 2018-10-02 21:12 | disposition home or self-care (01) ==
LOC: ER 16:36
DX: M48.54XA Collapsed vertebra, not elsewhere classified, thoracic region, initial encounter for fracture (principal); G89.29 Other chronic pain; M54.6 Pain in thoracic spine
CPT/HCPCS: 71046; 71275; 83880; 84484; 85025; 85379; 85610; 85730; 93005; 96361; 96374; 99284; A9270; J7030; Q9967; 82040; 82247; 82310; 82374; 82435; 82565; 82947; 84075; 84132; 84155; 84295; 84450; 84460; 84520

== ENCOUNTER → 2018-10-04 | Emergency (ER) | payer MEDICARE, OTHER ==
[2014-09-29 11:06] VITALS: Wt 68.9 kg
[~2018-10-04] MED LIST changes: +ASPIRIN 81 MG CHEW PO ONE
--- NOTE | 2018-10-04 14:16 | ER Report ---
History and Physical Time Seen By MD: 14:15 Hx. of Stated Complaint: CHEST PAIN HPI/ROS CHIEF COMPLAINT: Chest pain HISTORY OF PRESENT ILLNESS: Patient is an 82-year-old female here with complaints of midsternal chest pain which started approximately 1 hour prior to arrival. Patient reportedly had similar symptoms on Monday when she was evaluated for similar symptoms. Chest pain is located in the midsternal distribution, patient denies prior history of coronary artery disease, myocardial infarction. Patient does not recall when her last stress test or echo were completed. EKG showed no acute ischemic changes. Patient was well- appearing, hemodynamically stable at time of evaluation. REVIEW OF SYSTEMS: Constitutional: No fever, no chills. Eyes: No discharge. ENT: No sore throat. Cardiovascular: + Midsternal chest pain, no palpitations. Respiratory: No cough, no shortness of breath. Gastrointestinal: No abdominal pain, no vomiting. Genitourinary: No hematuria. Musculoskeletal: No back pain. Skin: No rashes. Neurological: No headache. Allergies: Coded Allergies: Penicillins (Verified Allergy, Severe, 10/04/18) Tetanus Vaccines and Toxoid (Verified Allergy, Severe, 10/04/18) bupivacaine (Verified Allergy, Severe, 10/04/18) carisoprodol (Verified Allergy, Severe, 10/04/18) cefdinir (Verified Allergy, Severe, 10/04/18) cimetidine (Verified Allergy, Severe, 10/04/18) cyclobenzaprine (Verified Allergy, Severe, 10/04/18) methadone (Verified Allergy, Severe, 10/04/18) metronidazole (Verified Allergy, Severe, 10/04/18) minocycline (Verified Allergy, Severe, 10/04/18) morphine (Verified Allergy, Severe, 10/04/18) oxycodone (Verified Allergy, Severe, 10/04/18) phenol (Verified Allergy, Severe, 10/04/18) phenylephrine (Verified Allergy, Severe, 10/04/18) prochlorperazine (Verified Allergy, Severe, 10/04/18) sucralfate (Verified Allergy, Severe, 10/04/18) tramadol (Verified Allergy, Severe, 10/04/18) trovafloxacin (Verified Allergy, Severe, 10/04/18) Shellfish (Verified Allergy, Intermediate, 10/04/18) mold extracts (Verified Allergy, Intermediate, 10/04/18) polyethylene glycol 3350 (Verified Allergy, Intermediate, 10/04/18) adhesive (Verified Allergy, Mild, UNKNOWN, 10/04/18) cephalexin (Verified Allergy, Mild, TINNITUS, 10/04/18) ciprofloxacin (Verified Allergy, Mild, UNKNOWN, 10/04/18) clindamycin (Verified Allergy, Mild, UNKNOWN, 10/04/18) diphenhydramine (Verified Allergy, Mild, UNKNOWN, 10/04/18) hydrocortisone (Verified Allergy, Mild, UNKNOWN, 10/04/18) lidocaine (Verified Allergy, Mild, UNKNOWN, 10/04/18) lorazepam (Verified Allergy, Mild, UNKNOWN, 10/04/18) prednisolone (Verified Allergy, Mild, UNKNOWN, 10/04/18) Fish Containing Products (Unverified Allergy, Unknown, 10/04/18) dexamethasone (Verified Allergy, Unknown, UNKNOWN, 10/04/18) hydromorphone (Unverified Allergy, Unknown, 10/04/18) influenza virus vaccine, specific (Verified Allergy, Unknown, UNKNOWN, 10/04/18) meperidine (Unverified Allergy, Unknown, 10/04/18) mirtazapine (Unverified Allergy, Unknown, 10/04/18) peas (Unverified Allergy, Unknown, 10/04/18) rivaroxaban (Unverified Allergy, Unknown, 10/04/18) rofecoxib (Unverified Allergy, Unknown, 10/04/18) sintia (Unverified Allergy, Unknown, 10/04/18) Uncoded Allergies: ALFALFA SPROUTS (Allergy, Intermediate, 05/14/10) ANIMALS (Allergy, Intermediate, 05/14/10) BUFFALO (Allergy, Intermediate, 05/14/10) CILANTRO (Allergy, Intermediate, 05/14/10) COLORING AND DYES (Allergy, Intermediate, ANAPHYLAXIS, 03/13/15) DUST (Allergy, Intermediate, 05/14/10) HANKINS (Allergy, Intermediate, 05/14/10) GAME MEAT (Allergy, Intermediate, 05/14/10) LISSA TEA (Allergy, Intermediate, 05/14/10) HARP (Allergy, Intermediate, 05/14/10) LENTILS (Allergy, Intermediate, 05/14/10) MACADAMIA NUTS (Allergy, Intermediate, 05/14/10) MAPLE FLAVOR (Allergy, Intermediate, NOTHING DOCUMENTED, 01/16/12) MUSHROOMS (Allergy, Intermediate, 05/14/10) RABBIT MEAT (Allergy, Intermediate, 05/14/10) HORSE SERUM (Allergy, Mild, 05/14/10) fluvaccine (Allergy, Mild, UNKNOWN, 03/20/14) Home Meds Active Scripts Acetaminophen/Hydrocodone (HYDROCODON-ACETAMINOPHN 10-325) 1 Each Tab, 2 TAB PO QID, #240 TAB 0 Refills Prov:KERRI NDIAYE MD 01/13/15 Reported Medications Eszopiclone (LUNESTA) 3 Mg Tablet, 3 MG PO QHS 10/28/16 Thyroid,Pork (WESTHROID-P) 65 Mg Tablet, 1 TAB PO DAILY, TAB 48.75 MG 09/28/14 Epinephrine (EPINEPHRINE) 0.15 Mg/0.15 Ml Pen.injctr, 0.15 MG IM PRN PRN for ALLERGY SYMPTOMS 09/28/14 Cholecalciferol (Vitamin D3) (VITAMIN D) 1,000 Unit Tablet, 1000 UNIT PO DAILY, TAB 09/28/14 Discontinued Reported Medications Diphenoxylate Hcl/Atropine (DIPHENOXYLATE-ATROPINE TABLET) 1 Each Tablet, 1 TAB PO BID PRN for DIARRHEA, TAB 09/28/14 Discontinued Scripts Sulfamethoxazole/Trimet 800-160 Mg Tab (BACTRIM DS TABLET) 1 Each Tablet, 1 TAB PO Q12H for 7 Days, #14 TAB Prov:KERRI MULLER JR, MD 05/17/17 Sulfamethoxazole/Trimet 800-160 Mg Tab (BACTRIM DS TABLET) 1 Each Tablet, 1 TAB PO Q12H for 10 Days, #20 TAB Prov:KERRI MULLER JR, MD 05/09/17 Dicyclomine Hcl (BENTYL) 10 Mg Capsule, 20 MG PO QID for cramping, #40 CAPSULE 0 Refills Prov:RAISA HCANEY MD 11/13/16 Alprazolam 0.5 Mg Tab (ALPRAZOLAM 0.5 MG TAB) 0.5 Mg Tablet, 1 TAB PO TID PRN for for anxiety, #90 TAB 3 Refills Prov:KERRI NDIAYE MD 7/8/15 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) Smoking Status: Former Smoker Exposure to Second Hand Smoke?: No Hx Substance Use Disorder: No Hx Alcohol Use: Yes (1 OUNCE A NIGHT ) Constitutional Vital Sign - Last 24 Hours 10/04/18 10/04/18 10/04/18 10/04/18 14:10 14:12 14:20 14:30 Temp 97.7 Pulse 80 Resp 14 B/P (MAP) 155/75 (101) 155/75 147/71 (96) Pulse Ox 84 O2 Delivery Room Air O2 Flow Rate 2.0 10/04/18 10/04/18 10/04/18 10/04/18 14:33 15:00 15:03 15:08 Pulse 76 71 74 Resp 17 16 18 B/P (MAP) 153/65 (94) Pulse Ox 91 90 91 10/04/18 10/04/18 10/04/18 10/04/18 15:30 15:38 16:00 16:08 Pulse 69 78 Resp 14 12 B/P (MAP) 153/66 (95) 150/64 (92) Pulse Ox 92 90 10/04/18 10/04/18 16:30 16:38 Pulse 75 Resp 11 B/P (MAP) 159/65 (96) Pulse Ox 91 Physical Exam General Appearance: The patient is alert, has no immediate need for airway protection and no signs of toxicity. No acute distress Eyes: Pupils equal and round no pallor or injection. ENT, Mouth: Mucous membranes are moist. Respiratory: There are no retractions, lungs are clear to auscultation. Cardiovascular: Regular rate and rhythm. Gastrointestinal: Abdomen is soft and non tender, no masses, bowel sounds no rmal. Neurological: No focal neurological deficits Skin: Warm and dry, no rashes. Musculoskeletal: Neck is supple non tender. Extremities are nontender, nonswollen and have full range of motion. DIFFERENTIAL DIAGNOSIS: After history and physical exam differential diagnosis was considered for chest pain including but not limited to myocardial ischemia, pericarditis pulmonary embolus, chest wall pain, pleural inflammation and pulmonary infectious causes. Medical Decision Making Data Points Result Diagram: 10/04/18 1437 10/04/18 1437 Laboratory Hematology Test 10/04/18 14:37 10/04/18 16:15 Red Blood Count 5.20 M/uL (4.17-5.56) Mean Corpuscular Volume 82.4 fL (80.0-96.0) Mean Corpuscular Hemoglobin 26.8 pg (26.0-33.0) Mean Corpuscular Hemoglobin Concent 32.5 g/dL (32.0-36.0) Red Cell Distribution Width 15.3 % (11.5-14.5) Mean Platelet Volume 9.6 fL (7.2-11.1) Neutrophils (%) (Auto) 59.9 % (39.4-72.5) Lymphocytes (%) (Auto) 22.2 % (17.6-49.6) Monocytes (%) (Auto) 12.8 % (4.1-12.4) Eosinophils (%) (Auto) 3.9 % (0.4-6.7) Basophils (%) (Auto) 1.2 % (0.3-1.4) Nucleated RBC Relative Count (auto) 0.1 /100WBC Neutrophils # (Auto) 4.1 K/uL (2.0-7.4) Lymphocytes # (Auto) 1.5 K/uL (1.3-3.6) Monocytes # (Auto) 0.9 K/uL (0.3-1.0) Eosinophils # (Auto) 0.3 K/uL (0.0-0.5) Basophils # (Auto) 0.1 K/uL (0.0-0.1) Nucleated RBC Absolute Count (auto) 0.01 K/uL Sodium Level 139 mmol/L (137-145) Potassium Level 4.0 mmol/L (3.5-5.0) Chloride Level 105 mmol/L (98-107) Carbon Dioxide Level 25 mmol/L (22-31) Blood Urea Nitrogen 11 mg/dl (7-18) Creatinine 1.10 mg/dl (0.52-1.04) Glomerular Filtration Rate Calc 47.8 Random Glucose 99 mg/dl (75-110) Calcium Level 8.8 mg/dl (8.4-10.2) Total Bilirubin 0.6 mg/dl (0.2-1.3) Aspartate Amino Transf (AST/SGOT) 39 U/L (0-35) Alanine Aminotransferase (ALT/SGPT) 13 U/L (0-56) Alkaline Phosphatase 94 U/L (0-126) B-Type Natriuretic Peptide 58 pg/ml (0-100) Total Protein 7.2 g/dl (6.3-8.2) Albumin 4.2 g/dl (3.5-5.0) Troponin I < 0.012 ng/ml Chemistry Test 10/04/18 14:37 10/04/18 16:15 White Blood Count 6.8 k/uL (4.5-11.0) Red Blood Count 5.20 M/uL (4.17-5.56) Hemoglobin 13.9 g/dL (12.0-16.0) Hematocrit 42.8 % (34.0-47.0) Mean Corpuscular Volume 82.4 fL (80.0-96.0) Mean Corpuscular Hemoglobin 26.8 pg (26.0-33.0) Mean Corpuscular Hemoglobin Concent 32.5 g/dL (32.0-36.0) Red Cell Distribution Width 15.3 % (11.5-14.5) Platelet Count 241 K/uL (150-450) Mean Platelet Volume 9.6 fL (7.2-11.1) Neutrophils (%) (Auto) 59.9 % (39.4-72.5) Lymphocytes (%) (Auto) 22.2 % (17.6-49.6) Monocytes (%) (Auto) 12.8 % (4.1-12.4) Eosinophils (%) (Auto) 3.9 % (0.4-6.7) Basophils (%) (Auto) 1.2 % (0.3-1.4) Nucleated RBC Relative Count (auto) 0.1 /100WBC Neutrophils # (Auto) 4.1 K/uL (2.0-7.4) Lymphocytes # (Auto) 1.5 K/uL (1.3-3.6) Monocytes # (Auto) 0.9 K/uL (0.3-1.0) Eosinophils # (Auto) 0.3 K/uL (0.0-0.5) Basophils # (Auto) 0.1 K/uL (0.0-0.1) Nucleated RBC Absolute Count (auto) 0.01 K/uL Glomerular Filtration Rate Calc 47.8 Calcium Level 8.8 mg/dl (8.4-10.2) Total Bilirubin 0.6 mg/dl (0.2-1.3) Aspartate Amino Transf (AST/SGOT) 39 U/L (0-35) Alanine Aminotransferase (ALT/SGPT) 13 U/L (0-56) Alkaline Phosphatase 94 U/L (0-126) B-Type Natriuretic Peptide 58 pg/ml (0-100) Total Protein 7.2 g/dl (6.3-8.2) Albumin 4.2 g/dl (3.5-5.0) Troponin I < 0.012 ng/ml EKG/Imaging EKG Interpretation PATIENT NAME: LIZZETTE BARFIELD : [id number] MR: [id number] V: [id number] EXAM DATE: ORDERING PHYSICIAN: JOSIAH MAR TECHNOLOGIST: DIANE Esposito Reason : CARDIAC Blood Pressure : / mmHG Vent. Rate : 080 BPM Atrial Rate : 080 BPM P-R Int : 166 ms QRS Dur : 124 ms QT Int : 408 ms P-R-T Axes : 051 -01 003 degrees QTc Int : 470 ms Sinus rhythm Possible left atrial enlargement Right bundle branch block Abnormal ECG Similar to previous EKGs Confirmed by TRINY RAMIREZ ([id number]) on 10/04/2018 2:43:47 PM Referred By: Confirmed By:TRINY RAMIREZ Monitor Interpretation: Normal Sinus Rhythm Imaging FACILITY: [facility] - [place], [place] PATIENT NAME: Lizzette Barfield : 1935 MR: [id number] V: [id number] EXAM DATE: ORDERING PHYSICIAN: JOSIAH MAR TECHNOLOGIST: [facility] [place] Patient: Lizzette Barfield : 1935 Visit/Account:[id number] Date of Sevice: 10/04/2018 Technique: CHEST PA LAT HISTORY: Chest Pain Comparison studies: Chest radiographs October 02, 2018, CT chest October 02, 2018 FINDINGS: Linear left basilar opacities are again noted. Remaining lungs are clear. There is pulmonary hyperexpansion. Cardiac silhouette is unchanged. Multiple compression deformities are again identified. IMPRESSION: 1. Unchanged linear left basilar opacities which may represent atelectasis, scarring or airspace process such as pneumonia. 2. Chronic findings as above. ED Course/Re-evaluation ED Course Patient is an 82-year-old female here with complaints of midsternal chest pain, 1 hour duration, recent history of similar symptoms on Monday which lasted for several hours. EKG showed no ischemic changes were acute findings. Repeat troponin delta 2 hours was also negative. Patient was also recently evaluated on Monday at which time troponin was negative after several hours chest pain. Even though troponin would likely be elevated if patient had recent myocardial infarction status post chest pain, decision was made to pursue 2 set cardiac enzyme rule out. Chest x-ray showed no acute findings. Labs were otherwise unremarkable. Recommend close follow-up with PCP. Return precautions provided. Patient was hemodynamically stable throughout course. Decision to Disposition Date: Oct 04, 2018 Decision to Disposition Time: 16:52 Depart Departure Latest Vital Signs Vital Signs Date Time Temp Pulse Resp B/P (MAP) Pulse Ox O2 Delivery O2 Flow Rate FiO2 10/04/18 16:38 75 11 91 10/04/18 16:30 159/65 (96) 10/04/18 14:20 2.0 10/04/18 14:12 97.7 Room Air Impression: Primary Impression: Chest pain Condition: Improved Disposition: HOME OR SELF-CARE Referrals: JOSE G ABREU MD (PCP) Patient Instructions: Chest Pain (GEN) Additional Instructions: Please return promptly if you develop chest pain, difficulty breathing, fevers or chills. Please follow-up with your family doctor in the next 24-48 hours for reevaluation and further care. Please keep all scheduled appointments. JOSIAH MAR DO Oct 04, 2018 14:16
--- NOTE | 2018-10-04 14:42 | EKG ---
FACILITY: [facility] - [place] PATIENT NAME: JENNA BARFIELD : [id number] MR: [id number] V: [id number] EXAM DATE: ORDERING PHYSICIAN: JOSIAH MAR TECHNOLOGIST: DIANE Esposito Reason : CARDIAC Blood Pressure : / mmHG Vent. Rate : 080 BPM Atrial Rate : 080 BPM P-R Int : 166 ms QRS Dur : 124 ms QT Int : 408 ms P-R-T Axes : 051 -01 003 degrees QTc Int : 470 ms Sinus rhythm Possible left atrial enlargement Right bundle branch block Abnormal ECG Similar to previous EKGs Confirmed by TRINY RAMIREZ ([id number]) on 10/04/2018 2:43:47 PM Referred By: Confirmed By:TRINY RAMIREZ
[2018-10-04 14:58] LABS: PLATELET COUNT, AUTOMATED 241 K/uL (150-450)
--- NOTE | 2018-10-04 15:08 | RADIOLOGY IMAGING REPORT ---
FACILITY: [facility] - [place] PATIENT NAME: Lizzette Alba : 1935 MR: [id number] V: [id number] EXAM DATE: ORDERING PHYSICIAN: JOSIAH MAR TECHNOLOGIST: Location: [facility] - [place] Patient: Lizzette Alba : 1935 Visit/Account:[id number] Date of Sevice: 10/04/2018 Technique: CHEST PA LAT HISTORY: Chest Pain Comparison studies: Chest radiographs October 02, 2018, CT chest October 02, 2018 FINDINGS: Linear left basilar opacities are again noted. Remaining lungs are clear. There is pulmon jose m hyperexpansion. Cardiac silhouette is unchanged. Multiple compression deformities are again robert ntified. IMPRESSION: 1. Unchanged linear left basilar opacities which may represent atelectasis, scarring or airspace pro cess such as pneumonia. 2. Chronic findings as above. Report Dictated By: Yves Ndiaye DO at 10/04/2018 3:01 PM Report E-Signed By: Yves Ndiaye DO at 10/04/2018 3:03 PM WSN:[id number]
[2018-10-04 17:00] VITALS: BP 159/71
== END ==
LOC: ER 14:35
DX: R07.9 Chest pain, unspecified (principal); I45.10 Unspecified right bundle-branch block
CPT/HCPCS: 71046; 82040; 82247; 82310; 82374; 82435; 82565; 82947; 83880; 84075; 84132; 84155; 84295; 84450; 84460; 84484; 84520; 85025; 93005; 99284